=== PATIENT | female | born 1995 | race Caucasian/White ===

== ENCOUNTER 2017-12-09 05:33 | Inpatient (IN) | payer MEDICAID ==
[~2017-12-09] VITALS: Ht 175.3 cm; Wt 88.0 kg
[2017-12-09] MEDS ORDERED: LACTATED RINGER'S 1000 ML INJ 1,000 ML IV PRN (07:20)
--- NOTE | 2017-12-09 07:28 | PD ---
HPI Chief Complaint ctx Date Seen: December 09, 2017 Time Seen: 07:23 Travel History International Travel<30 Days: No Contact w/Intl Traveler<30Days: No Known Affected Area: No History of Present Illness HPI 22y/o G1 @ 40.4wks. She has PNC with Dr. Harrington. She presents to triage with c/o ctx. She reports that they started at 1:30am with cramping but then became worse. She also has had some bloody show. No LOF. +FM. Weeks Gestation: 40 Para: 0 : 1 History Past Medical History Medical History: Denies Significant Hx Obstetric History Obstetric History 1. current Past Surgical History Narrative Surgical wisdom teeth extraction Family History Family History: Negative Social History Alcohol Use: No Tobacco Use: No Substance Abuse: No Allergies-Medications (Allergen,Severity, Reaction): Coded Allergies: No Known Allergies (Unverified , 12/09/17) Narrative Medication PNVs FeSO4 Review of Systems Except as stated in HPI: all other systems reviewed are Neg Physical Exam Narrative General: well developed, well nourished, no acute distress HEENT: normocephalic atraumatic, extraocular movements intact, neck supple Abdomen: soft, gravid, nontender, nondistended Uterus: fundus term Extremities: full range of motion Skin: normal coloration, no rashes, no suspicious skin lesions noted Neurologic: cranial nerves 2-12 grossly intact, normal muscle tone, normal gait Psychiatric: normal mood and affect, appropriate FHTs: 125, +accels, no decels, moderate variability, reactive E[place]rick: irregular Cvx: 3-4/70/-2 Data Data Vital Signs Reviewed: Yes Orders Orders Vital Signs (Adult) .ON ADMISSION (12/09/17 07:20) ^ Labor Status (12/09/17 07:20) ^ Non Stress Test (12/09/17 07:20) Admit To Inpatient (12/09/17 ) Vital Signs (Adult) .Per protocol (12/09/17 07:20) Heart (12/09/17 07:20) Amnioinfusion (12/09/17 07:20) Urinary Catheter Management .ONCE (12/09/17 07:20) Diet Liquid (12/09/17 Breakfast) Lactated Ringer's 1000 Ml Inj (Lr 1000 M (12/09/17 07:20) Lactated Ringer's 1000 Ml Inj (Lr 1000 M (12/09/17 07:20) Sodium Chlorid 0.9% 500 Ml Inj (Ns 500 M (12/09/17 07:30) Sodium Chlor 0.9% 1000 Ml Inj (Ns 1000 M (12/09/17 07:40) Lidocaine 1% Inj (50 Ml) (Xylocaine 1% I (12/09/17 07:30) Fentanyl Inj (Fentanyl Inj) (12/09/17 07:30) Fentanyl Inj (Fentanyl Inj) (12/09/17 07:30) Complete Blood Count With Diff (12/09/17 07:20) Hold Clot (12/09/17 07:20) Abo/Rh Blood Type (12/09/17 07:20) Urinalysis - C+S If Indicated (12/09/17 07:20) Drug Screen, Random Urine (12/09/17 07:20) Ob/Psych Drug Screen, Urine (12/09/17 07:20) Resp Oxygen Non Rebreathe Mask (12/09/17 ) ^ Epidural / Intrathecal Infus (12/09/17 07:20) Oxytocin 30 Units-500ml Premix (Pitocin (12/09/17 07:30) Lidocaine 1% Inj (50 Ml) (Xylocaine 1% I (12/09/17 07:30) Light Mineral Oil (Muri-Lube Oil) (12/09/17 07:30) Inpatient Certification (12/09/17 ) Group B Strep: Negative MDM Plan 22y/o G1 @ 40.4wks in labor -- admit to L&D -- epidural/lee PRN -- CEFM/toco -- CLD -- FHTs cat 1 Dispo: Dr. Harrington notified of pt status and agrees with plan of care. Courtesy orders placed. Diagnosis Diagnosis: Primary Impression: 40 weeks gestation of Additional Impressions: Postmaturity , 40-42 weeks gestation Uterine contractions during María Goyal MD December 09, 2017 07:28
[2017-12-09] MEDS ORDERED: LIDOCAINE HCL 1% 50 ML VIAL INFIL PRN (07:30)
[2017-12-09] MEDS ORDERED: OXYTOCIN 30 UNITS-500ML PREMIX 500 ML IV ONE (07:30)
[2017-12-09] MEDS ORDERED: SODIUM CHLORID 0.9% 500 ML INJ 500 ML IV PRN (07:30)
[2017-12-09] MEDS ORDERED: LIDOCAINE HCL 1% 50 ML VIAL I-DERMAL PRN (07:30)
[2017-12-09] MEDS ORDERED: MINERAL OIL 10 ML VIAL TOPICAL PRN (07:30)
[2017-12-09] MEDS ORDERED: SODIUM CHLOR 0.9% 1000 ML INJ 1,000 ML IV PRN (07:40)
[2017-12-09] MEDS ORDERED: ePHEDrine/NS 25 MG/5 ML SYRINGE ONE (08:06)
[2017-12-09] MEDS ORDERED: fentaNYL 2MCG-BUPIV 0.125% INJ 100 ML ONE (08:06)
[2017-12-09 08:07] LABS: AUTOMATED NEUTROPHIL # 10.2 TH/MM3 (1.8-7.7); BASOPHIL % 0.2 % (0.0-2.0); EOSINOPHIL # 0.1 TH/MM3 (0-0.4); EOSINOPHIL % 0.4 % (0.0-4.0); HEMATOCRIT 31.2 % (35.0-46.0); HEMOGLOBIN 9.9 GM/DL (11.6-15.3); LYMPH % 11.5 % (9.0-44.0); LYMPHOCYTE # 1.5 TH/MM3 (1.0-4.8); MEAN CORPUSCULAR HEMOGLOBIN 23.4 PG (27.0-34.0); MEAN CORPUSCULAR HGB CONC 31.7 % (32.0-36.0); MEAN PLATELET VOLUME 8.8 FL (7.0-11.0); MONO % 7.6 % (0.0-8.0); NEUT % 80.3 % (16.0-70.0); PLATELET COUNT 163 TH/MM3 (150-450); RED BLOOD COUNT 4.22 MIL/MM3 (4.00-5.30); RED CELL DISTRIBUTION WIDTH 18.6 % (11.6-17.2); WHITE BLOOD COUNT 12.8 TH/MM3 (4.0-11.0)
[2017-12-09 08:15] LABS: BILIRUBIN, URINE NEG (NEG); BLOOD, URINE LARGE (NEG); GLUCOSE,URINE NEG (NEG); KETONE, URINE NEG (NEG); NITRITE,URINE NEG (NEG); SQUAMOUS EPITHELIAL CELL URINE 3 /hpf (0-5); URINE COLOR YELLOW (YELLW/STRAW); URINE LEUKOCYTE ESTERASE MOD (NEG)
[2017-12-09] MEDS: LACTATED RINGER'S 1000 ML INJ 1,000 ML IV SCH ×2 (08:40→23:20)
[2017-12-09] MEDS ORDERED: LIDOCAINE 2%/EPINEPHrine PF 1:200,000 20ML SDV ONE (09:24)
[2017-12-09] MEDS ORDERED: LIDOCAINE HCL 1% PF 5 ML AMPULE ONE (09:25)
[2017-12-09] MEDS ORDERED: LIDOCAINE 1.5%/EPINEPHrine 1:200,000 PF SOLN 30 ML AMP ONE (09:25)
[2017-12-09] MEDS ORDERED: NO SYSTEM NARCOTICS PRN (10:45)
[2017-12-09] MEDS ORDERED: fentaNYL 2MCG-BUPIV 0.125% 100 ML EPIDURAL PRN (10:45)
[2017-12-09] MEDS ORDERED: DO NOT ADMINISTER ANTICOAGULANTS PRN (10:45)
[2017-12-09] MEDS ORDERED: ePHEDrine/NS 25 MG/5 ML SYRINGE IV PUSH PRN (10:45)
[2017-12-09 11:15] VITALS: BP 102/53; PULSE 77
[2017-12-09 11:30] VITALS: BP 110/54; PULSE 75
[2017-12-09 11:44] VITALS: RESP 16; TEMP 98.1
[2017-12-09 12:15] VITALS: BP 126/71; PULSE 81
--- NOTE | 2017-12-09 14:43 | PD.OB.DELI ---
Weeks gestation: 40 Gest age assessed date: December 09, 2017 Gest age assessed time: 07:00 Pt started active labor?: Yes Active labor start date: December 09, 2017 Active labor start time: 06:00 Medical induction of labor?: No Artificial rupture of membrane: Yes Artificial ROM date: December 09, 2017 Artifical ROM time: 11:00 Anesthesia: Epidural Episiotomy: None Vaginal Delivery: Normal Presentation: Occiput anterior Nuchal Cord: None Delayed cord clamping (45 sec): Yes : Male Delivery date: December 09, 2017 Delivery time: 14:04 One Minute : 9 Five Minute : 9 Placenta: Spontaneous delivery Laceration: Vaginal laceration, 1 deg (bilateral labial, ), 2 deg (midline) Repair: Vicryl running (3-0 labial; 2-0 vaginal) Estimated blood loss: 250cc Marcelino Albarran MD December 09, 2017 14:42
[2017-12-09] MEDS ORDERED: OXYTOCIN 10 UNIT/ML AMP XX PRN (14:45)
[2017-12-09] MEDS ORDERED: WITCH HAZEL 50%/GLYCERIN 12.5% 40 PAD JAR TOPICAL PRN (14:45)
[2017-12-09] MEDS ORDERED: ALUMINUM/MAGNESIUM/SIMETH 30 ML CUP PO PRN (14:45)
[2017-12-09] MEDS ORDERED: BENZOCAINE 20% TOPICAL SPRAY 60 ML CAN TOPICAL PRN (14:45)
[2017-12-09] MEDS ORDERED: OXYTOCIN 30 UNITS-500ML PREMIX 500 ML IV SCH (14:45)
[2017-12-09] MEDS ORDERED: SODIUM CHLORIDE 0.9% FLUSH 10 ML FLUSH IV FLUSH PRN (14:45)
[2017-12-09] MEDS ORDERED: ACETAMINOPHEN 325 MG TAB PO PRN (14:45)
[2017-12-09] MEDS ORDERED: SODIUM CHLORIDE 0.9% FLUSH 10 ML FLUSH IV FLUSH SCH (14:45)
[2017-12-09] MEDS: IBUPROFEN 800 MG TAB PO PRN (15:08)
[2017-12-09] MEDS ORDERED: MEASLES, MUMPS, RUBELLA VACCINE 0.5 ML VIAL SQ ONE (16:00)
[2017-12-09] MEDS ORDERED: DIPHTH/TETANUS/ACEL PERTUSSIS (BOOSTER) 0.5 ML VIAL/PFS IM ONE (16:00)
[2017-12-09 17:00] VITALS: BP 111/69; PULSE 86; RESP 20; TEMP 97.9
[2017-12-09 20:00] VITALS: BP 111/67; PULSE 66; RESP 18; TEMP 97.8; O2SAT 98
[2017-12-09] MEDS: oxyCODONE/ACETAMINOPHEN 5 MG/325 MG TAB PO PRN (20:18)
[2017-12-09] MEDS: DOCUSATE SODIUM 50 MG/SENNA 8.6 MG TAB PO PRN (20:18)
[2017-12-09] MEDS: ONDANSETRON ODT 4 MG TAB PO PRN (20:30)
[2017-12-09] MEDS ORDERED: ZOLPIDEM TARTRATE 5 MG TAB PO PRN (21:00)
[2017-12-10] MEDS: IBUPROFEN 800 MG TAB PO PRN ×3 (00:10→16:44)
[2017-12-10] MEDS: oxyCODONE/ACETAMINOPHEN 5 MG/325 MG TAB PO PRN ×6 (00:10→21:59)
[2017-12-10 08:00] VITALS: BP 111/72; PULSE 80; RESP 18; TEMP 97.8
[2017-12-10] MEDS: DOCUSATE SODIUM 50 MG/SENNA 8.6 MG TAB PO PRN ×2 (08:46→21:58)
--- NOTE | 2017-12-10 12:03 | HHI.OB ---
Subjective Post Day: 1 Remarks ppd#1, STABLE ;transitioning well. Objective Vitals/I&O Vital Signs Date Time Temp Pulse Resp B/P (MAP) Pulse Ox O2 Delivery O2 Flow Rate FiO2 12/10/17 08:00 97.8 80 18 111/72 (85) 12/09/17 20:00 97.8 66 18 111/67 (82) 98 12/09/17 17:00 97.9 86 20 111/69 (83) 12/09/17 12:15 81 126/71 (89) Objective Remarks GENERAL: Well-nourished, well-developed patient. CARDIOVASCULAR: Regular rate and rhythm without murmurs, gallops, or rubs. RESPIRATORY: Breath sounds equal bilaterally. No accessory muscle use. ABDOMEN/GI: Abdomen soft, non-tender. Fundus: Firm, non-tender at umbilicus. GENITOURINARY: Light to moderate bleeding. EXTREMITIES: No cyanosis or edema, non-tender, without signs of DVT. Medications and IVs Current Medications Medications (Trade) Dose Ordered Sig/Leonardo Route Start Time Stop Time Status Last Admin Lactated Ringer's 1,000 ml @ 125 mls/hr Q8H IV 12/09/17 07:20 12/09/17 08:40 Lactated Ringer's 1,000 ml @ 3,000 mls/hr Q20M PRN IV 12/09/17 07:20 12/09/17 07:59 Sodium Chloride 500 ml @ 1,000 mls/hr ONCE PRN IV 12/09/17 07:30 Sodium Chloride 1,000 ml @ 100 mls/hr Q10H PRN IV 12/09/17 07:40 (Xylocaine 1% Inj (50 ml)) 0.1 ml UNSCH X1 PRN I-DERMAL 12/09/17 07:30 12/12/17 07:29 (Xylocaine 1% Inj (50 ml)) 10 ml UNSCH X1 PRN INFIL 12/09/17 07:30 12/11/17 07:29 12/09/17 15:08 (Muri-Lube Oil) 10 ml UNSCH PRN TOPICAL 12/09/17 07:30 12/09/17 15:08 Fentanyl/ Bupivacaine HCl 100 ml @ 12 mls/hr TITRATE PRN EPIDURAL 12/09/17 10:45 12/09/17 11:00 (Pitocin Inj) 20 units UNSCH X1 PRN XX 12/09/17 14:45 12/10/17 14:44 12/09/17 15:21 (NS Flush) 2 ml BID IV FLUSH 12/09/17 14:45 (NS Flush) 2 ml UNSCH PRN IV FLUSH 12/09/17 14:45 (Tylenol) 650 mg Q4H PRN PO 12/09/17 14:45 (Motrin) 800 mg Q8H PRN PO 12/09/17 14:45 12/10/17 08:41 (Percocet 5-325 Mg) 1 tab Q4H PRN PO 12/09/17 14:45 12/10/17 08:40 (Americaine 20% Top Spr) 1 spray Q4H PRN TOPICAL 12/09/17 14:45 12/09/17 15:21 (Tucks Pads) 1 applic QID PRN TOPICAL 12/09/17 14:45 (Lisa-Colace) 2 tab Q12H PRN PO 12/09/17 14:45 12/10/17 08:46 (Ambien) 5 mg HS PRN PO 12/09/17 21:00 (Mag-Al Plus Susp Liq) 15 ml Q8H PRN PO 12/09/17 14:45 (Zofran Odt) 4 mg Q6H PRN PO 12/09/17 14:45 12/09/17 20:30 Assessment/Plan Assessment and Plan PPD#!; s/p ; anticipate discharge today or more likely tomorrow, PPD#2. Discharge Planning Routine Attending Attestation seen by Marcelino Hurtado MD December 10, 2017 12:03
[2017-12-10] MEDS ORDERED: IBUP1TAB7 PO (12:05)
--- NOTE | 2017-12-10 12:05 | HHI.DS ---
Admission Date December 09, 2017 at 07:33 Admitting Diagnosis Diagnosis: Delivery Date: December 09, 2017 Vaginal Delivery: Normal : Male Brief History 22y/o G1 @ 40.4wks. She has PNC with Dr. Harrington. She presents to triage with c/o ctx. She reports that they started at 1:30am with cramping but then became worse. She also has had some bloody show. No LOF. +FM. Pt Condition on Discharge: Good Discharge Disposition: Discharge Home Discharge Instructions Diet Instructions: As Tolerated, No Restrictions Activities You Can Perform: Shower Only-No Bath Activities to Avoid: Driving for 24 hrs, Prolonged Standing, Strenuous Activity , Sexual Activity Marcelino Albarran MD December 10, 2017 12:05
[2017-12-10] MEDS ORDERED: oxyCODONE/ACETAMINOPHEN 5 MG/325 MG TAB PO PRN (14:30)
[2017-12-10] MEDS: ONDANSETRON ODT 4 MG TAB PO PRN (17:32)
[2017-12-10] MEDS: LACTATED RINGER'S 1000 ML INJ 1,000 ML IV SCH (23:20)
[2017-12-11] MEDS: IBUPROFEN 800 MG TAB PO PRN ×2 (00:21→11:57)
[2017-12-11] MEDS: oxyCODONE/ACETAMINOPHEN 5 MG/325 MG TAB PO PRN ×2 (04:17→11:57)
[2017-12-11] MEDS: LACTATED RINGER'S 1000 ML INJ 1,000 ML IV SCH (06:22)
[2017-12-11 09:40] VITALS: BP 115/69; PULSE 101; RESP 18; TEMP 98
[2017-12-11] MEDS ORDERED: OXYC1TAB63 PO (10:41)
--- NOTE | 2017-12-11 10:45 | HHI.OB ---
Subjective Post Day: 2 Remarks PPD#2; doing well, is using PERCOCET with motrin for pain control. Objective Objective Remarks GENERAL: Well-nourished, well-developed patient. CARDIOVASCULAR: Regular rate and rhythm without murmurs, gallops, or rubs. RESPIRATORY: Breath sounds equal bilaterally. No accessory muscle use. ABDOMEN/GI: Abdomen soft, non-tender. Fundus: Firm, non-tender at umbilicus. GENITOURINARY: Light to moderate bleeding. EXTREMITIES: No cyanosis or edema, non-tender, without signs of DVT. Medications and IVs Current Medications Medications (Trade) Dose Ordered Sig/Leonardo Route Start Time Stop Time Status Last Admin Lactated Ringer's 1,000 ml @ 125 mls/hr Q8H IV 12/09/17 07:20 12/09/17 08:40 Lactated Ringer's 1,000 ml @ 3,000 mls/hr Q20M PRN IV 12/09/17 07:20 12/09/17 07:59 Sodium Chloride 500 ml @ 1,000 mls/hr ONCE PRN IV 12/09/17 07:30 Sodium Chloride 1,000 ml @ 100 mls/hr Q10H PRN IV 12/09/17 07:40 (Xylocaine 1% Inj (50 ml)) 0.1 ml UNSCH X1 PRN I-DERMAL 12/09/17 07:30 12/12/17 07:29 (Muri-Lube Oil) 10 ml UNSCH PRN TOPICAL 12/09/17 07:30 12/09/17 15:08 Fentanyl/ Bupivacaine HCl 100 ml @ 12 mls/hr TITRATE PRN EPIDURAL 12/09/17 10:45 12/09/17 11:00 (NS Flush) 2 ml BID IV FLUSH 12/09/17 14:45 (NS Flush) 2 ml UNSCH PRN IV FLUSH 12/09/17 14:45 (Tylenol) 650 mg Q4H PRN PO 12/09/17 14:45 (Motrin) 800 mg Q8H PRN PO 12/09/17 14:45 12/11/17 00:21 (Americaine 20% Top Spr) 1 spray Q4H PRN TOPICAL 12/09/17 14:45 12/09/17 15:21 (Tucks Pads) 1 applic QID PRN TOPICAL 12/09/17 14:45 (Lisa-Colace) 2 tab Q12H PRN PO 12/09/17 14:45 12/10/17 21:58 (Ambien) 5 mg HS PRN PO 12/09/17 21:00 (Mag-Al Plus Susp Liq) 15 ml Q8H PRN PO 12/09/17 14:45 (Zofran Odt) 4 mg Q6H PRN PO 12/09/17 14:45 12/10/17 17:32 (Percocet 5-325 Mg) 1 tab Q4H PRN PO 12/10/17 14:30 (Percocet 5-325 Mg) 2 tab Q6H PRN PO 12/10/17 14:45 12/11/17 04:17 Assessment/Plan Assessment and Plan PPD#2; s/p ; anticipate discharge today , PPD#2. Discharge Planning Routine Attending Attestation seen by Marcelino Hurtado MD December 11, 2017 10:45
== END 2017-12-11 14:57 | disposition home or self-care (01) | DRG 775 ==
LOC: HOBED 05:33 → H2EB 07:33 → H1EA 16:23
PROVIDERS: ADMIT Obstetrics & Gynecology; ATTEND Obstetrics & Gynecology
PROC: 10E0XZZ Delivery of Products of Conception, External Approach (ICD-10-PCS; principal; 2017-12-09)
PROC: 0KQM0ZZ Repair Perineum Muscle, Open Approach (ICD-10-PCS; 2017-12-09)
PROC: 0UQMXZZ Repair Vulva, External Approach (ICD-10-PCS; 2017-12-09)
PROC: 10907ZC Drainage of Amniotic Fluid, Therapeutic from Products of Conception, Via Natural or Artificial Opening (ICD-10-PCS; 2017-12-09)
PROC: 3E0R3BZ Introduction of Anesthetic Agent into Spinal Canal, Percutaneous Approach (ICD-10-PCS; 2017-12-09)
PROC: 00HU33Z Insertion of Infusion Device into Spinal Canal, Percutaneous Approach (ICD-10-PCS; 2017-12-09)
DX: O48.0 Post-term pregnancy (principal); O70.1 Second degree perineal laceration during delivery; O70.0 First degree perineal laceration during delivery; Z3A.40 40 weeks gestation of pregnancy; Z37.0 Single live birth
CPT/HCPCS: 59025; 80307; 81001; 85025; 86900; 86901; 87086; G0481; J2590; J3010; J7120